=== PATIENT | male | born 1955 ===

== ENCOUNTER 2021-10-06 20:36 | Inpatient (IN) | payer MEDICARE ==
[~2021-10-06] VITALS: Ht 188 cm; Wt 81.6 kg
--- NOTE | 2021-10-06 21:30 | NUR ---
PT BIB [facility] FOR MEDICAL CLEARANCE, PLACED ON A 5150 HOLD DTS, DTO,GD. A/O X3, NO SOB OR LABORED BREATHING, AFEBRILE. DENIES CP/PRESSURE. NO N/V/D. CLEAR SPEECH, COMPLETE SENTENCES. DENIES ANY SI, NO VISUAL OR AUDITORY HALLUCINCATIONS. NOTED TO BE CALM AND COOPERATIVE AT THIS TIME.
--- NOTE | 2021-10-06 21:50 | NUR ---
DR. BARRIENTOS AT BEDSIDE, MSE IN PROGRESS.
--- NOTE | 2021-10-06 22:27 | NUR ---
XRAY AT BEDSIDE.
[2021-10-06 22:48] LABS: HEMATOCRIT 33.6 % (36.7-47.1); MEAN CORPUSCULAR HEMOGLOBIN 28.6 uug (23.8-33.4); MEAN CORPUSCULAR VOLUME 84.6 fL (73.0-96.2); PLATELET COUNT (AUTO) 253 K/uL (152-348)
[2021-10-06 22:49] LABS: CREATININE 0.9 mg/dL (0.6-1.3); POTASSIUM 3.6 mmol/L (3.5-5.1)
[2021-10-06 23:23] LABS: *BILIRUBIN,URIN NEGATIVE (NEGATIVE); *BLOOD, URINE NEGATIVE (NEGATIVE); *CLARITY,URINE CLEAR (CLEAR); *COLOR,URINE YELLOW (YELLOW); *KETONES,URINE NEGATIVE (NEGATIVE); *UROBILINOGEN,URINE 0.2 E.U./dl (NORMAL); LEUKOCYTE ESTERASE ,URINE NEGATIVE (NEGATIVE); NITRITE, URINE NEGATIVE (NEGATIVE); UGLUCOSE NEGATIVE (NEGATIVE)
[2021-10-06 23:42] LABS: *AMPHETAMINE, URINE NEGATIVE (NEGATIVE); *CANNABINOID, URINE POSITIVE (NEGATIVE); *COCCAINE, URINE NEGATIVE (NEGATIVE); *OPIATE, URINE NEGATIVE (NEGATIVE); *PHENCYCLIDINE SCREEN,URINE NEGATIVE (NEGATIVE)
[2021-10-07] MEDS ORDERED: DIPH50CA37 GT (00:09)
[2021-10-07] MEDS ORDERED: LORA-258 PO (00:09)
[2021-10-07] MEDS ORDERED: IBUP-1953 PO (00:09)
[2021-10-07] MEDS ORDERED: HYDR50CA PO (00:09)
[2021-10-07] MEDS ORDERED: ACET-2154 PO (00:09)
[2021-10-07] MEDS ORDERED: MAGN400O6 PO (00:09)
--- NOTE | 2021-10-07 01:00 | NUR ---
PT STRONGLY REFUSED EKG DESPITE EDUCATING PT, DR. BARRIENTOS MADE AWARE.
[2021-10-07 01:53] LABS: BILIRUBIN,DIRECT 0.1 mg/dL (0.0-0.2); BILIRUBIN,TOTAL 0.3 mg/dL (0.2-1.0); TOTAL PROTEIN, SERUM 7.4 g/dL (6.4-8.2)
--- NOTE | 2021-10-07 02:09 | NUR ---
GAVE REPORT TO EDVIN Ethel NURSE.
--- NOTE | 2021-10-07 02:55 | NUR ---
Pt. admitted to [facility] , under care of Dr. Sanchez and Riya Calle Dx: psychosis 5150 DTS, DTO, GD. Belongs List completed
[2021-10-07] MEDS ORDERED: BLOOD SUGAR DIAGNOSTIC 1 EACH STRIP VI ONE (03:15)
[2021-10-07] MEDS ORDERED: ACETAMINOPHEN 325 MG TABLET PO PRN (03:15)
[2021-10-07] MEDS ORDERED: MAG HYDROX/AL HYDROX/SIMETH 30 ML LIQUID UDC PO PRN (03:15)
[2021-10-07] MEDS ORDERED: MAGNESIUM HYDROXIDE 30 ML LIQUID UDC PO PRN (03:15)
--- NOTE | 2021-10-07 05:00 | NUR ---
Received from the Emergency Room, at 0250, on a 72 hour hold for danger to self/others, and gravely disabled, a transfer from [facility]. According to the hold, he was walking into multiple residences in the middle of the night, When the police were called, he stated he doesn't eat, bathe, or know where he lives. Upon arrival on the unit, he was calm, but uncooperative with any information. He refused a body check, or any kind of assessment, including when asked if he wanted to hurt himself, or others, although he threatened to punch the face of ER staff, when attempting to obtain a MRSA swab. According to documentation from [facility], he told them that he is GOD, that he created the universe, that he has been multiple celebrities, including Hiro Orozco, and various singers. He also told them he had a prior suicide attempt, many years, ago, multiple psychiatric hospitalizations, and a history of cocaine abuse. He was cooperative in taking a shower, and went to his room. He allowed photos to be taken, and was given a snack, and went to sleep. As of now, he remains asleep. No distress noted.
--- NOTE | 2021-10-07 06:00 | NUR ---
Slept 1.75 hours. Continues to sleep. No distress noted.
[2021-10-07] MEDS ORDERED: OLAN5TAB3 PO (06:19)
--- NOTE | 2021-10-07 09:42 | NUR ---
Firearms Report: Bottom Cager completed and submitted a [employer] firearms report for 5150 grave disability certifications. A copy of report has been placed in patient chart.
--- NOTE | 2021-10-07 10:22 | NUR ---
SW Initial Discharge Plan: Unable to identify where patient lives. Pt appears to be homeless. Pt has no family or supportive contacts. Patient may need SNF placement. SW will continue to work with patient and MD to ensure a safe and proper discharge engel.
--- NOTE | 2021-10-07 11:22 | NUR ---
Gps/Pad Cutter- Called Cydney ([phone]) was recorded as spouse , apparently she is the Director at [facility]. No family or pharmacy salesperson noted. Patient unable to provide any information at this time, he is aware he is in the Hospital .Will continue to gather information necessary
[2021-10-07 16:00] VITALS: BP 158/78
--- NOTE | 2021-10-07 17:15 | NUR ---
Gps/Corporate Tax Manager -Unable to obtain information regarding his vaccinations , patient is confused, , no contacts noted Addendum: 10/07/21 at 1718 by DENITA ROTH LVN Amended: Links added.
[2021-10-07 20:07] VITALS: BP 148/76
[2021-10-07] MEDS: OLANZAPINE 5 MG TABLET PO SCH (22:30)
[2021-10-08] MEDS: TEMAZEPAM 7.5 MG CAPSULE PO PRN (00:34)
[2021-10-08] MEDS: OLANZAPINE 5 MG TABLET PO SCH ×3 (00:35→20:39)
--- NOTE | 2021-10-08 06:16 | NUR ---
GPS: Pt.slept 7 hrs.last night and currently still asleep during rounds. Breathing easy and unlabored. Safe environment provided. Will continue to monitor.
--- NOTE | 2021-10-08 11:18 | NUR ---
[facility] SNF Referral: SUSAN faxed patient's referral packet to [facility] attention to Jona fax: [phone] for review for placement.
[2021-10-08] MEDS: AMLODIPINE 5 MG TABLET PO SCH (11:30)
--- NOTE | 2021-10-08 17:12 | NUR ---
Gps/Auto Parts Clerk- Had been cooperative, tends to isolate self, staying in bed most of the day, encouraged participating in his group therapy
[2021-10-08 20:00] VITALS: BP 132/79
--- NOTE | 2021-10-09 06:50 | NUR ---
GPS: Pt.slept 6 hrs.last night. Remains guarded,evasive,makes bizarre remarks. No aggressive behavior noted. Safe environment provided. Will continue to monitor.
[2021-10-09 08:26] VITALS: BP 149/78
[2021-10-09] MEDS: OLANZAPINE 5 MG TABLET PO SCH ×2 (08:26→20:35)
[2021-10-09] MEDS: AMLODIPINE 5 MG TABLET PO SCH (08:26)
[2021-10-09] MEDS: ENSURE ENLIVE (VAN) 240 ML LIQUID PO SCH (08:26)
--- NOTE | 2021-10-09 13:54 | NUR ---
GPS: Nursing Notes: Thought Disorder: Patient is awake and responding to his name, compliant with his medications, loud and pressured speech at times, needs prompting to participate in therapeutic groups, gets easily irritable when redirected, A/Ox2, believes that he is the creator, believes that he is God, hyper-voodoo at times, unable to formulate a viable plan for self care, impaired judgment, continue to monitor for safety, continue with treatment plan.
[2021-10-09 16:48] VITALS: BP 152/94
[2021-10-09 20:00] VITALS: BP 148/85
[2021-10-09] MEDS: LORAZEPAM 1 MG TABLET PO PRN (20:35)
[2021-10-09] MEDS: TEMAZEPAM 7.5 MG CAPSULE PO PRN (23:16)
--- NOTE | 2021-10-10 03:17 | NUR ---
Received the patient in the day room, in front of the TV. This patient has delusions of grandeur, and proceeded to tell this short story writer that he was the " Creator of all the water on earth". His demeanor was pleasant and the affect was bright. No aggressive or combative behavior noted of any kind. Patient denies SI and HI. Safety stratiges are in place and monitoring for behavior escalation. Continuing with the plan of care at this time.
[2021-10-10 07:30] VITALS: BP 129/83
[2021-10-10] MEDS: ENSURE ENLIVE (VAN) 240 ML LIQUID PO SCH (08:28)
[2021-10-10] MEDS: OLANZAPINE 5 MG TABLET PO SCH ×3 (08:28→21:52)
[2021-10-10] MEDS: AMLODIPINE 5 MG TABLET PO SCH (08:28)
[2021-10-10 16:00] VITALS: BP 157/87
--- NOTE | 2021-10-10 18:02 | NUR ---
GPS: Nursing Notes: Thought Disorder: Patient is awake and responding to his name, participating in therapeutic groups, cooperative with nursing care, compliant with his medications, grandiose delusion, believes that he is the creator, "I created the water.. I did a good job..", believes that he is God, unable to formulate a viable plan for self care, continue to monitor for safety, continue with treatment plan.
[2021-10-10 20:15] VITALS: BP 156/84
--- NOTE | 2021-10-11 06:29 | NUR ---
Pt is delusional, grandiose, and believes that he is "the supreme being" and that he "can heel all wounds, and stop you from aging another day". Pt believes he is a prophet sent here to "rescue" the world. Reality reorientation provided. Denied pain, VS stable.
[2021-10-11 08:19] VITALS: BP 147/84
[2021-10-11] MEDS: AMLODIPINE 5 MG TABLET PO SCH (08:19)
[2021-10-11] MEDS: OLANZAPINE 5 MG TABLET PO SCH ×3 (08:19→20:09)
[2021-10-11] MEDS: ENSURE ENLIVE (VAN) 240 ML LIQUID PO SCH (08:20)
[2021-10-11 16:23] VITALS: BP 175/87
[2021-10-11] MEDS: LORAZEPAM 1 MG TABLET PO PRN (16:55)
[2021-10-11 20:06] VITALS: BP 152/82
--- NOTE | 2021-10-12 07:19 | NUR ---
GPS: Pt.slept for 6 hrs.last night. No increased agitation noted. Remains delusional and hyper-nondenominational. Poor insight to present situation. Will continue to monitor.
[2021-10-12 07:30] VITALS: BP 127/77
[2021-10-12] MEDS: OLANZAPINE 5 MG TABLET PO SCH ×3 (08:19→20:36)
[2021-10-12] MEDS: AMLODIPINE 10 MG TABLET PO SCH (08:20)
[2021-10-12] MEDS: ENSURE ENLIVE (VAN) 240 ML LIQUID PO SCH (08:20)
--- NOTE | 2021-10-12 12:11 | NUR ---
[facility] PC Hearing: Patient had 5250 probable cause hearing today and it was upheld for grave disability.
--- NOTE | 2021-10-12 12:34 | NUR ---
GPS: Nursing Notes: Thought Disorder: Patient is awake and responding to his name, needs prompting to participate in therapeutic groups, grandiose delusion, believes that he is the creator, "I created the water on earth..", gets easily irritable when redirected by staff, continue to be compliant with his medications, unable to formulate a viable plan for self care, continue with treatment plan.
[2021-10-12 16:20] VITALS: BP 135/72
[2021-10-12 23:21] VITALS: BP 157/87
[2021-10-13 07:30] VITALS: BP 130/58
[2021-10-13] MEDS: ENSURE ENLIVE (VAN) 240 ML LIQUID PO SCH (08:35)
[2021-10-13] MEDS: OLANZAPINE 5 MG TABLET PO SCH ×2 (08:35→20:36)
[2021-10-13] MEDS: AMLODIPINE 10 MG TABLET PO SCH (08:35)
[2021-10-13 16:00] VITALS: BP 129/81
[2021-10-13 20:10] VITALS: BP 158/75
--- NOTE | 2021-10-14 05:05 | NUR ---
Sleeping soundly with no distress noted. Pt denies SI or HI, able to follow commands and is pleasant at this time. Pt stated several times that he has to, "go home tonight," but was able to be redirected and educated about plan of care.
[2021-10-14 07:30] VITALS: BP 109/66
[2021-10-14] MEDS: ENSURE ENLIVE (VAN) 240 ML LIQUID PO SCH (08:48)
[2021-10-14] MEDS: OLANZAPINE 5 MG TABLET PO SCH ×2 (08:48→20:31)
[2021-10-14] MEDS: AMLODIPINE 10 MG TABLET PO SCH (08:48)
[2021-10-14 16:00] VITALS: BP 131/76
--- NOTE | 2021-10-14 18:30 | NUR ---
GPS: PT GETS ENTERTAINED BY TV AND ALSO PARTICIPATES WITH GROUP THERAPY. NO AGITATION NOTED. COOPERATIVE WITH CARE AND COMPLIANT WITH MEDICATIONS.
[2021-10-14 20:19] VITALS: BP 122/77
[2021-10-15 07:30] VITALS: BP 124/70
[2021-10-15] MEDS: ENSURE ENLIVE (VAN) 240 ML LIQUID PO SCH (08:31)
[2021-10-15] MEDS: AMLODIPINE 10 MG TABLET PO SCH (08:32)
[2021-10-15] MEDS: OLANZAPINE 5 MG TABLET PO SCH ×2 (08:32→20:19)
[2021-10-15 17:00] VITALS: BP 153/82
[2021-10-15 20:06] VITALS: BP 138/74
--- NOTE | 2021-10-16 01:50 | NUR ---
Received pt sleeping comfortably. No acute distress noted. Safety measures maintained. Will continue to monitor.
[2021-10-16 07:30] VITALS: BP 143/80
[2021-10-16] MEDS: AMLODIPINE 10 MG TABLET PO SCH (08:03)
[2021-10-16] MEDS: OLANZAPINE 5 MG TABLET PO SCH ×2 (08:03→20:07)
[2021-10-16] MEDS: ENSURE ENLIVE (VAN) 240 ML LIQUID PO SCH (08:03)
[2021-10-16 20:00] VITALS: BP 150/85
[2021-10-17 07:49] VITALS: BP 127/73
[2021-10-17] MEDS: OLANZAPINE 5 MG TABLET PO SCH ×2 (08:57→21:16)
[2021-10-17] MEDS: AMLODIPINE 10 MG TABLET PO SCH (08:58)
[2021-10-17] MEDS: ENSURE ENLIVE (VAN) 240 ML LIQUID PO SCH (08:58)
[2021-10-17 15:57] VITALS: BP 134/64
--- NOTE | 2021-10-17 18:35 | NUR ---
Pt cooperative throughout the day. pt took his medications. No behavioral outburst. Pt denies any c/o pain.
[2021-10-17 22:03] VITALS: BP 129/1
--- NOTE | 2021-10-18 03:41 | NUR ---
Received to care, watching tv with peers. pleasant upon approach. Compliant with medications and staff direction. Denies any psychotic sx. Went to bed around 2230. As of now, he continues to sleep. No distress noted. Will continue to monitor closely.
--- NOTE | 2021-10-18 06:00 | NUR ---
Slept 5 hours, total. No distress, noted.
[2021-10-18 07:40] VITALS: BP 139/80
[2021-10-18] MEDS: AMLODIPINE 10 MG TABLET PO SCH (08:34)
[2021-10-18] MEDS: OLANZAPINE 5 MG TABLET PO SCH ×2 (08:34→21:14)
[2021-10-18] MEDS: ENSURE ENLIVE (VAN) 240 ML LIQUID PO SCH (08:35)
--- NOTE | 2021-10-18 12:57 | NUR ---
SW Discharge Planning Pt has been accepted at [address] [address] ([phone]) for discharge on 10/19/21.
--- NOTE | 2021-10-18 15:03 | NUR ---
SW Facility Contact SUSAN faxed [facility] ([phone]) at [address] [address] , to provide updated clinicals.
[2021-10-18 15:42] VITALS: BP 117/71
[2021-10-18 20:18] VITALS: BP 148/83
--- NOTE | 2021-10-19 06:25 | NUR ---
Received to care, watching tv with peers. pleasant upon approach. Compliant with medications and staff direction. Denies any psychotic sx. Went to bed around 2300. Slept 7 hours, total. As of now, he continues to sleep. No distress noted. Will continue to monitor closely.
--- NOTE | 2021-10-19 06:34 | NUR ---
Slept 7 hours, total.
[2021-10-19 07:30] VITALS: BP 131/78
[2021-10-19] MEDS: OLANZAPINE 5 MG TABLET PO SCH (10:03)
[2021-10-19 10:06] VITALS: BP 131/78
[2021-10-19] MEDS: AMLODIPINE 10 MG TABLET PO SCH (10:06)
[2021-10-19] MEDS: ENSURE ENLIVE (VAN) 240 ML LIQUID PO SCH (10:07)
--- NOTE | 2021-10-19 12:15 | NUR ---
SW Discharge Note Patient will be discharged to correction facility, [place] [address] ([phone]) via Ambulance transportation at 1PM today. Salon Receptionist spoke with Sherri, Lozenge Dough Mixer at [facility] ([phone]), and he confirmed that patient will be accepted at their facility today. Patient does not have any family or next of kin contacts at this time. Patient is alert and oriented x4. Patient is not able to plan for self-care at this time but is willing to accept care provided at the facility. Patient denies suicidal or homicidal ideation. Patient is aware and agreeable with discharge plans. Patient presents with appropriate mood and congruent affect. Patient will follow-up with Psychiatrist Dr. Sanchez and Credit Advisor Dr. Woods at [facility]. Patient signed the homeless waiver upon discharge and a copy was placed in the chart. Homeless resources were provided and include [address] information line for shelters and homeless resources. A copy of all resources given to patient was also placed in the chart.
--- NOTE | 2021-10-19 14:30 | NUR ---
GPS: Nursing Notes: Discharge Notes: Patient is awake and responding to his name, cooperative with nursing care, compliant with his medications, cooperative with nursing care, following staff directions, denies SI/HI, denies AH/VH, denies pain or discomfort, denies SOB, discharge to [facility] at [address] [place], [place] [id number] , transported to facility via ambulance, took all his belongings and valuable with him, report given to AZAM Graham tank house supervisor at [facility]. Patient will follow up with Dr. Sanchez (psychiatrist) and Dr. Woods (mold mover) at the facility per social staff worker notes, patient was provided with homeless resources and [address] information [address] for shelters by social staff worker.
== END 2021-10-19 14:30 | DRG 885 ==
LOC: ER 20:36 → GPS 23:45 → EDBD 23:45
PROVIDERS: ADMIT Psychiatry & Neurology Psychiatry; ATTEND Internal Medicine
DX: F25.9 Schizoaffective disorder, unspecified (principal); E87.1 Hypo-osmolality and hyponatremia; D64.9 Anemia, unspecified; I10 Essential (primary) hypertension; E78.1 Pure hyperglyceridemia; R73.9 Hyperglycemia, unspecified; R74.01 Elevation of levels of liver transaminase levels; Z91.51 Personal history of suicidal behavior; F41.9 Anxiety disorder, unspecified
CPT/HCPCS: 36415; 71045; 85025; 93005; 97161; A4663